=== PATIENT | male | born 1945 | race Caucasian/White ===

== ENCOUNTER 2018-04-24 10:37 | Day surgery (SDC) | payer MEDICARE ==
[~2018-04-24 10:37] MED LIST: KETOROLAC TROMETHAMINE 0.45% 4 DROP/0.4 ML DROPERETTE OS PRN
[2018-04-24] MEDS: TROPICAMIDE 1% OPH SOLN 3 ML OS PRN ×3 (10:54→11:30)
[2018-04-24] MEDS: CYCLOPENTOLATE 0.2%/PHENYLEPHRINE 1% OPH SOLN 2 ML OS PRN ×3 (10:54→11:30)
[2018-04-24] MEDS: BESIFLOXACIN HCL 0.6% OPH SUSP 5 ML BOTTLE OS PRN ×5 (10:55→11:57)
[2018-04-24] MEDS: TETRACAINE HCL 0.5% OPH SOLN 0.6 ML DROPERETTE OS PRN ×4 (10:56→11:34)
[2018-04-24] MEDS ORDERED: ALBUTEROL SULFATE 0.083% NEB 2.5 MG/3 ML AMPUL NEB ONE (11:06)
[2018-04-24] MEDS ORDERED: MIDAZOLAM 2 MG/2 ML INJ ONE (11:13)
[2018-04-24] MEDS ORDERED: FENTANYL CITRATE INJ/PF 100 MCG/2 ML AMPUL ONE (11:14)
[2018-04-24] MEDS: LIDOCAINE 1% INJ-PF (10 MG/ML) 30 ML SDV ONE ×2 (11:42)
[2018-04-24] MEDS: EPINEPHRINE INJ/PF 1 MG/1 ML AMPULE ONE ×2 (11:42)
[2018-04-24] MEDS: CHONDR SU A NA/HYALUR INTRAOC KIT (SURGICARE) ONE ×2 (11:42)
[2018-04-24] MEDS: TOBRAMYCIN SULFATE/DEXAMETH OPH OINTMENT 3.5 GM ONE ×2 (11:57)
== END 2018-04-24 12:35 | disposition home or self-care (01) ==
LOC: SC 10:37
PROVIDERS: ATTEND Ophthalmology
DX: H25.12 Age-related nuclear cataract, left eye (principal); F17.210 Nicotine dependence, cigarettes, uncomplicated; I25.10 Atherosclerotic heart disease of native coronary artery without angina pectoris; J44.9 Chronic obstructive pulmonary disease, unspecified; R01.1 Cardiac murmur, unspecified; I49.9 Cardiac arrhythmia, unspecified; Z95.2 Presence of prosthetic heart valve; Z85.46 Personal history of malignant neoplasm of prostate
CPT/HCPCS: 66984; V2788; J2250; J3490 ×3; A9270 ×2; J0171; J3010; 142

== ENCOUNTER 2018-05-15 09:39 | Day surgery (SDC) | payer MEDICARE ==
[~2018-05-15 09:39] MED LIST changes: +CHONDR SU A NA/HYALUR INTRAOC KIT (SURGICARE) ONE; +EPINEPHRINE INJ/PF 1 MG/1 ML AMPULE ONE; +KETOROLAC TROMETHAMINE 0.45% 4 DROP/0.4 ML DROPERETTE OD PRN; -KETOROLAC TROMETHAMINE 0.45% 4 DROP/0.4 ML DROPERETTE OS PRN; +LIDOCAINE 1% INJ-PF (10 MG/ML) 30 ML SDV ONE
[2018-05-15] MEDS: BESIFLOXACIN HCL 0.6% OPH SUSP 5 ML BOTTLE OD PRN ×5 (10:00→11:57)
[2018-05-15] MEDS: TROPICAMIDE 1% OPH SOLN 3 ML OD PRN ×3 (10:00→10:22)
[2018-05-15] MEDS: CYCLOPENTOLATE 0.2%/PHENYLEPHRINE 1% OPH SOLN 2 ML OD PRN ×3 (10:00→10:22)
[2018-05-15] MEDS: TETRACAINE HCL 0.5% OPH SOLN 0.6 ML DROPERETTE OD PRN ×3 (10:01→10:29)
[2018-05-15] MEDS ORDERED: ALBUTEROL SULFATE 0.083% NEB 2.5 MG/3 ML AMPUL NEB ONE (10:02)
[2018-05-15] MEDS ORDERED: FENTANYL CITRATE INJ/PF 100 MCG/2 ML AMPUL ONE (10:15)
[2018-05-15] MEDS ORDERED: MIDAZOLAM 2 MG/2 ML INJ ONE (10:15)
[2018-05-15] MEDS: TOBRAMYCIN SULFATE/DEXAMETH OPH OINTMENT 3.5 GM ONE ×3 (11:03→11:57)
== END 2018-05-15 11:47 | disposition home or self-care (01) ==
LOC: SC 09:39
PROVIDERS: ATTEND Ophthalmology
DX: H25.11 Age-related nuclear cataract, right eye (principal); Z98.42 Cataract extraction status, left eye; I25.10 Atherosclerotic heart disease of native coronary artery without angina pectoris; J44.9 Chronic obstructive pulmonary disease, unspecified; I10 Essential (primary) hypertension; F17.210 Nicotine dependence, cigarettes, uncomplicated; R06.02 Shortness of breath; Z95.2 Presence of prosthetic heart valve
CPT/HCPCS: 66984; V2788; J2250; J3490 ×3; A9270 ×2; J0171; J3010; 142